=== PATIENT | male | born 1990 ===

== ENCOUNTER 2016-10-01 06:35 | Emergency (ER) | payer BC ==
[2016-10-01 06:38] VITALS: TEMP 97.8
[2016-10-01 06:45] VITALS: BP 118/74; PULSE 71; RESP 18; O2SAT 99
[2016-10-01] MEDS ORDERED: GABA800T PO (06:46)
[2016-10-01] MEDS ORDERED: DEPA500T3 PO (06:47)
[2016-10-01] MEDS ORDERED: SODIUM CHLOR 0.9% 1000 ML INJ 1,000 ML IV ONE (07:02)
--- NOTE | 2016-10-01 07:12 | PD ---
HPI Chief Complaint: Seizure Time Seen by Provider: 06:59 Travel History International Travel<30 days: No Contact w/Intl Traveler<30days: No Traveled to known affect area: No History of Present Illness HPI Patient is a 26-year-old male who presents to emergency room after he had a seizure episode last night. Patient reports that he has history of seizures, he follows with Dr. Jacob with neurology for them. He also takes Depakote 1000 mg twice a day as well as gabapentin 800 mg twice a day, reports that he forgot to take last night's dose of Depakote. Patient reports that he had a seizure in the middle night, reports that when he woke up, his right shoulder feels like it is displaced. Patient reports pain to his right shoulder. Patient with no incontinence of urine during seizure event. Patient denies any trauma to the head or neck. Reports that last seizure was a "very long time ago." PFSH Past Medical History Diminished Hearing: No Medical other: Yes (EPILEPSY ) Seizures: Yes Past Surgical History Surgical History: No Previous Surgery Social History Alcohol Use: No Tobacco Use: Yes (1PPD) Substance Use: No Allergies-Medications (Allergen,Severity, Reaction): Coded Allergies: No Known Allergies (Unverified , 10/01/16) Reported Meds & Prescriptions Reported Meds & Active Scripts Active Reported Depakote ER (Divalproex Sodium) 500 Mg Vanessa 1,000 Mg PO BID Gabapentin 800 Mg Tab 800 Mg PO BID Review of Systems General / Constitutional: No: Fever Eyes: No: Visual changes HENT: No: Headaches Cardiovascular: No: Chest Pain or Discomfort Respiratory: No: Shortness of Breath Gastrointestinal: No: Abdominal Pain Genitourinary: No: Dysuria Musculoskeletal: Positive: Pain (right shoulder) Skin: No Rash Neurologic: Positive: Seizures, No: Weakness Psychiatric: No: Depression Endocrine: No: Polydipsia Hematologic/Lymphatic: No: Easy Bruising Physical Exam Narrative GENERAL: Mild distress SKIN: Focused skin assessment warm/dry. HEAD: Atraumatic. Normocephalic. EYES: Pupils equal and round. No scleral icterus. No injection or drainage. ENT: No nasal bleeding or discharge. Mucous membranes pink and moist. NECK: Trachea midline. No JVD. CARDIOVASCULAR: Regular rate and rhythm. No murmur appreciated. RESPIRATORY: No accessory muscle use. Clear to auscultation. Breath sounds equal bilaterally. GASTROINTESTINAL: Abdomen soft, non-tender, nondistended. Hepatic and splenic margins not palpable. MUSCULOSKELETAL: No obvious deformities. No clubbing. No cyanosis. No edema. Patient with pain with range of motion to right shoulder NEUROLOGICAL: Awake and alert. No obvious cranial nerve deficits. Motor grossly within normal limits. Normal speech. PSYCHIATRIC: Appropriate mood and affect; insight and judgment normal. Data Data Last Documented VS Vital Signs Date Time Temp Pulse Resp B/P Pulse Ox O2 Delivery O2 Flow Rate FiO2 10/01/16 06:45 71 18 118/74 99 10/01/16 06:38 97.8 Orders Complete Blood Count With Diff (10/01/16 07:02) Ecg Monitoring (10/01/16 07:02) Iv Access Insert/Monitor (10/01/16 07:02) Oximetry (10/01/16 07:02) Comprehensive Metabolic Panel (10/01/16 07:02) Sodium Chlor 0.9% 1000 Ml Inj (Ns 1000 M (10/01/16 07:02) Sodium Chloride 0.9% Flush (Ns Flush) (10/01/16 07:15) Shoulder, Complete (>2vws) (10/01/16 ) Valproate Inj (Depacon Inj) (10/01/16 07:15) Ketorolac Inj (Toradol Inj) (10/01/16 07:15) MDM Medical Decision Making Medical Screen Exam Complete: Yes Emergency Medical Condition: Yes Interpretation(s) Vital Signs Date Time Temp Pulse Resp B/P Pulse Ox O2 Delivery O2 Flow Rate FiO2 10/01/16 06:45 71 18 118/74 99 10/01/16 06:41 71 18 99 10/01/16 06:38 97.8 Differential Diagnosis Differential includes recurrent seizure, medication noncompliance, electrolyte abnormality, shoulder dislocation vs fracture Narrative Course Patient is a 26-year-old male who presents to emergency room for evaluation of seizure and right shoulder pain. Patient has history of seizures, he takes Depakote as well as gabapentin for the seizures. He missed a dose of his Depakote last night, reports that he had a seizure in the middle night while he was in bed. Patient reports that when he woke up, he was unable to move his right shoulder and feels as if it is dislocated. Patient with history of seizures, plan to give a dose of Depakote, will x-ray patient shoulder. Labwork obtained to evaluate for electrolyte abnormality After IV placed, patient was offered toradol for pain. Patient became angry with this treatment care plan and demanded that his IV be removed and that he leave the ER AMA. I did try to talk to patient as he reported a seizure prior to coming to the emergency room. I reviewed with him that opiates can lower his seizure threshold, discussed with him that I would like to try Toradol for pain first. Patient currently refusing x-ray of shoulder, refusing further treatment at this time. AMA: The risks of leaving against medical advice without further evaluation treatment were discussed with the patient. These risks include cardiac dysfunction, cardiac dysrhythmia, possible heart attack, possible stroke or . The patient indicated understanding of these risks and appeared to have the capacity to make this decision. Patient understands that he may return to the emergency room at any time should he be agreeable for medical treatment. Diagnosis Primary Impression: Left against medical advice Additional Instructions: You may return to the ER at any time for medical evaluation Please follow up with your neurologist as well as your primary care doctor as soon as possible Take all medications as prescribed Disposition: 07 AGAINST MEDICAL ADVICE Condition: Serious Arleen Cleaning DO Oct 01, 2016 07:12
[2016-10-01] MEDS ORDERED: KETOROLAC TROMETHAMINE 30 MG/ML (IVP) VIAL IV PUSH ONE (07:15)
[2016-10-01] MEDS ORDERED: SODIUM CHLORIDE 0.9% FLUSH 10 ML FLUSH IVF PRN (07:15)
[2016-10-01] MEDS ORDERED: VALPROATE INJ 1,000 MG in SODIUM CHLORIDE 0.9% INJ 100 ML IV ONE (07:15)
--- NOTE | 2016-10-01 12:39 | EKG ---
Date Performed: 10/01/2016 Time Performed: 06:51:45 PTAGE: 26 years EKG: Sinus rhythm WITH SINUS ARRHYTHMIA NORMAL ECG NO PREVIOUS TRACING DOCTOR: Narendra Valenzuela Interpretating Date/Time 10/01/2016 12:34:12
== END 2016-10-01 07:49 | disposition left against medical advice (07) ==
LOC: NEPC 06:35
DX: G40.909 Epilepsy, unspecified, not intractable, without status epilepticus (principal); M25.511 Pain in right shoulder; I49.8 Other specified cardiac arrhythmias; F17.200 Nicotine dependence, unspecified, uncomplicated; Z79.899 Other long term (current) drug therapy
CPT/HCPCS: 93005; 99281